=== PATIENT | male | born 2000 | race Hispanic/Latino ===

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

== ENCOUNTER 2021-12-07 07:24 | Emergency (ER) | payer SELFPAY ==
--- OUTSIDE RECORDS SUMMARY | 2021-12-07 07:26 | XMS REPORT | Continuity of Care Document ---
:2000 Author Organization [facility] t Address [address] [place] [address] Care Team Providers Name Role Phone Unavailable Unavailable Unavailable Problems This patient has no known problems. Allergies, Adverse Reactions, Alerts This patient has no known allergies or adverse reactions. Medications This patient has no known medications. Procedures This patient has no known procedures. Results This patient has no known results.
--- NOTE | 2021-12-07 08:49 | ER ---
Nurse's Notes [facility] Name: Noel Morrison Age: 21 yrs Sex: Male : 2000 Arrival Date: 12/07/2021 Time: 07:26 Bed 13 Private MD: Diagnosis: Impacted cerumen, left ear Presentation: 12/07 07:41 Chief complaint: Patient states: Feels like something is in my left ear, no pain, can't jl7 hear very well out of it x 3 days. Coronavirus screen: At this time, the client does not indicate any symptoms associated with coronavirus-19. Ebola Screen: No symptoms or risks identified at this time. Initial Sepsis Screen: Does the patient meet any 2 criteria? No. Patient's initial sepsis screen is negative. Does the patient have a suspected source of infection? No. Patient's initial sepsis screen is negative. Risk Assessment: Do you want to hurt yourself or someone else? Patient reports no desire to harm self or others. Onset of symptoms was December 04, 2021. 07:41 Method Of Arrival: Ambulatory 7 07:41 Acuity: ARTI 4 jl7 Triage Assessment: 07:42 General: Appears in no apparent distress. uncomfortable, Behavior is calm, cooperative, jl7 appropriate for age. Pain: Denies pain. EENT: Reports decreased hearing in left ear. Historical: - Allergies: 07:42 No Known Allergies; jl7 - Home Meds: 07:42 None [Active]; jl7 - PMHx: 07:42 None; jl7 - PSHx: 07:42 None; jl7 - Immunization history:: Adult Immunizations not up to date. - Social history:: Smoking status: Patient/guardian denies using tobacco. Screenin:29 Abuse screen: Denies threats or abuse. Denies injuries from another. Nutritional ic1 screening: No deficits noted. Tuberculosis screening: No symptoms or risk factors identified. Fall Risk None identified. Assessment: 08:29 General: Appears in no apparent distress. comfortable, Behavior is calm, cooperative, ic1 appropriate for age. Pain: Denies pain. Neuro: No deficits noted. Cardiovascular: No deficits noted. Respiratory: No deficits noted. GI: No deficits noted. : No deficits noted. EENT: Reports decreased hearing d/t cerumen build up in L ear. Denies complete hearing loss. . Denies ringing. Derm: No deficits noted. Musculoskeletal: No deficits noted. 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 Pt tolerating. ic1 Vital Signs: 07:41 BP 132 / 71; Pulse 64; Resp 15; Temp 98.2; Pulse Ox 100% ; Weight 92.99 kg; Height 6 jl7 ft. 1 in. (185.42 cm); Pain 0/10; 07:41 Body Mass Index 27.05 (92.99 kg, 185.42 cm) jl7 ED Course: 07:26 Patient arrived in ED. am2 07:26 Rashel Overton MD is Attending Physician. kdr 07:42 Triage completed. jl7 07:42 Arm band placed on right wrist. jl7 07:45 Russ Rohca NP is PHCP. pm1 08:29 Patient has correct armband on for positive identification. Bed in low position. Call ic1 light in reach. Side rails up X2. 08:47 Yareli Mujica MD is Referral Physician. pm1 08:53 No provider procedures requiring assistance completed. Patient did not have IV access cruz during this emergency room visit. Administered Medications: No medications were administered Outcome: 08:48 Discharge ordered by . pm1 08:53 Discharged to home cruz 08:53 Condition: good 08:53 Discharge instructions given to patient. 08:53 Patient left the ED. crzu Signatures: Rashel Overton MD MD kdr Russ Rocha NP FOOD SUPERVISOR pm1 Megha Courtney RN RN jl7 Corinne Davis 2 Cynthia Barbosa RN RN cruz Rafaela Fernando RN RN ic1
--- NOTE | 2021-12-07 08:49 | EDPHYS ---
Physician Documentation [facility] Name: Noel Morrison Age: 21 yrs Sex: Male : 2000 Arrival Date: 12/07/2021 Time: 07:26 Bed 13 Private MD: ED Physician Rashel Overton HPI: 12/07 07:51 This 21 yrs old Male presents to ER via Ambulatory with complaints of Ear pm1 Foreign body sensation. 07:51 The patient presents with a foreign body sensation. The complaints affect the left ear. pm1 Onset: The symptoms/episode began/occurred 3 day(s) ago. Modifying factors: The symptoms are alleviated by nothing, the symptoms are aggravated by Q-tips. Patient attempted to clean out his ears but made it worse. Associated signs and symptoms: Pertinent positives: decreased hearing, Pertinent negatives: cough, fever, tinnitus. Severity of symptoms: in the emergency department the symptoms are worse. The patient has not experienced similar symptoms in the past. The patient has not recently seen a physician. Historical: - Allergies: 07:42 No Known Allergies; jl7 - Home Meds: 07:42 None [Active]; jl7 - PMHx: 07:42 None; jl7 - PSHx: 07:42 None; jl7 - Immunization history:: Adult Immunizations not up to date. - Social history:: Smoking status: Patient/guardian denies using tobacco. ROS: 07:51 Constitutional: Negative for fever, chills, and weight loss. pm1 07:51 Neuro: Negative for headache, weakness, numbness, tingling, and seizure. 07:51 ENT: Positive for hearing loss, Negative for drainage from ear(s), ear pain, sinus congestion, sinus pain, sore throat, dental pain. 07:51 All other systems are negative. Exam: 07:51 Constitutional: This is a well developed, well nourished patient who is awake, alert, pm1 and in no acute distress. Head/Face: Normocephalic, atraumatic. 07:51 Skin: Warm, dry with normal turgor. Normal color with no rashes, no lesions, and no evidence of cellulitis. MS/ Extremity: Pulses equal, no cyanosis. Neurovascular intact. Full, normal range of motion. 07:51 ENT: External ear(s): no acute changes, Ear canal(s): cerumen impaction, that is moderate, occluding the left ear canal, TM's: not visable, because of cerumen, Examination of the other ear shows no obvious abnormality. 07:51 Cardiovascular: Exam negative for acute changes, Rate: normal, Rhythm: regular, Pulses: no pulse deficits are appreciated. 07:51 Respiratory: Exam negative for acute changes, respiratory distress, shortness of breath. 07:51 Neuro: Exam negative for acute changes, Orientation: is normal, Mentation: is normal, Motor: moves all fours, Gait: is steady, at a normal pace, without difficulty. Vital Signs: 07:41 BP 132 / 71; Pulse 64; Resp 15; Temp 98.2; Pulse Ox 100% ; Weight 92.99 kg; Height 6 jl7 ft. 1 in. (185.42 cm); Pain 0/10; 07:41 Body Mass Index 27.05 (92.99 kg, 185.42 cm) jl7 MDM: 07:54 Patient medically screened. pm1 08:47 Data reviewed: vital signs. Data interpreted: Pulse oximetry: on room air is 100 %. pm1 Interpretation: normal. Counseling: I had a detailed discussion with the patient and/or guardian regarding: the historical points, exam findings, and any diagnostic results supporting the discharge/admit diagnosis, the need for outpatient follow up, for definitive care, an ENT specialist, to return to the emergency department if symptoms worsen or persist or if there are any questions or concerns that arise at home. 08:53 ED course: Attempted to irrigate ear for ear wax removal but not successful at removing pm1 all the ear wax. Cerumen impaction persists. I did not want to use a curette due to risk of causing harm with abrasions and TM perforation. Patient given information about ear wax removal kits and ENT information. Administered Medications: No medications were administered Disposition: 12:41 Co-signature as Attending Physician, Rashel Overton MD I agree with the assessment and kdr plan of care. Disposition Summary: 12/07/21 08:48 Discharge Ordered Location: Home pm1 Problem: new pm1 Symptoms: have improved pm1 Condition: Stable pm1 Diagnosis - Impacted cerumen, left ear pm1 Followup: pm1 - With: Emergency Department - When: As needed - Reason: Worsening of condition Followup: pm1 - With: Yareli Mujica MD - When: 2 - 3 days - Reason: Recheck today's complaints, Continuance of care, Re-evaluation by your physician Discharge Instructions: - Discharge Summary Sheet pm1 - Earwax Buildup, Adult pm1 Forms: - Medication Reconciliation Form pm1 - Thank You Letter pm1 - Antibiotic Education pm1 - Prescription Opioid Use pm1 - Work release form eb Signatures: Rashel Overton MD MD kdr Russ Rocha NP [employer] pm1 Megha Courtney RN RN jl7
[2021-12-07 08:58] VITALS: BP 132/71; TEMP 98.2; O2SAT 100
== END 2021-12-07 08:53 | disposition home or self-care (01) ==
LOC: ER 07:24
DX: H61.22 Impacted cerumen, left ear (principal)
CPT/HCPCS: 99281

== ENCOUNTER 2022-06-23 05:05 | Emergency (ER) | payer SELFPAY ==
--- OUTSIDE RECORDS SUMMARY | 2022-06-23 05:08 | XMS REPORT | Continuity of Care Document ---
:2000 Author Organization [facility] t Address [address] [place] [address] Care Team Providers Name Role Phone Unavailable Unavailable Unavailable Problems This patient has no known problems. Allergies, Adverse Reactions, Alerts This patient has no known allergies or adverse reactions. Medications This patient has no known medications. Procedures This patient has no known procedures. Results This patient has no known results.
[2022-06-23] MEDS ORDERED: TETANUS & DIPHTHERIA TOX,ADULT 0.5 ML VIAL ONE (05:53)
[2022-06-23] MEDS ORDERED: CEPHALEXIN 250 MG CAP ONE (05:53)
[2022-06-23] MEDS ORDERED: IBUPROFEN 400 MG TAB ONE (05:53)
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
[2022-06-23 09:45] VITALS: TEMP 99.2
--- NOTE | 2022-06-23 09:47 | RAD REPORT ---
EXAM DESCRIPTION: RAD - Hand Right 3 View - 06/23/2022 6:16 am CLINICAL HISTORY: PAINnot otherwise specified COMPARISON: No comparisons FINDINGS: No fracture is identified. There is no dislocation or periosteal reaction noted. Soft tis mi swelling is present over the dorsum of the hand. No air or foreign body seen in the soft tissues. IMPRESSION: Right hand soft tissue swelling with no air or foreign body seen in the soft tissues. No acute bone or joint finding.
[2022-06-23 09:53] VITALS: BP 127/65; O2SAT 100
== END 2022-06-23 09:34 | disposition home or self-care (01) ==
LOC: ER 05:05
DX: S60.511A Abrasion of right hand, initial encounter (principal); Z23 Encounter for immunization; F17.210 Nicotine dependence, cigarettes, uncomplicated
CPT/HCPCS: 90471; 90714; 99283

== ENCOUNTER 2023-08-24 04:33 | Emergency (ER) | payer SELFPAY ==
[2023-08-24] MEDS ORDERED: TETRACAINE HCL 0.5% 4ML OPTH ONE (05:09)
[2023-08-24] MEDS ORDERED: FLUORESCEIN SODIUM 1 MG/WRAP ONE (05:12)
--- NOTE | 2023-08-24 05:19 | ER ---
Nurse's Notes [facility] Name: Noel Morrison Age: 22 yrs Sex: Male : 2000 Arrival Date: 08/24/2023 Time: 04:33 Bed 19 Private MD: Diagnosis: Unspecified acute conjunctivitis, right eye Presentation: 08/24 05:00 Chief complaint: Patient states: right eye redness, eye watering, and light sensitivity km8 for about 2 hours; pt does normally wear contacts, did not sleep in them last night. Coronavirus screen: Client denies travel out of the [place] in the last 14 days. At this time, the client does not indicate any symptoms associated with coronavirus-19. Ebola Screen: No symptoms or risks identified at this time. Initial Sepsis Screen: Does the patient meet any 2 criteria? No. Patient's initial sepsis screen is negative. Does the patient have a suspected source of infection? No. Patient's initial sepsis screen is negative. Risk Assessment: Do you want to hurt yourself or someone else? Patient reports no desire to harm self or others. Onset of symptoms was August 24, 2023 at 03:00. 05:00 Method Of Arrival: Ambulatory km8 05:00 Acuity: ARTI 4 km8 Triage Assessment: 05:03 General: Appears in no apparent distress. comfortable, Behavior is calm, cooperative, km8 appropriate for age. Pain: Complains of pain in right eye Pain currently is 8 out of 10 on a pain scale. EENT: Eyes are tearing on right eye Reports pain Pain is 8 out of 10 on a pain scale. Neuro: No deficits noted. Bishop Agitation-Sedation Scale (RASS): 0 - Alert and Calm Level of Consciousness is awake, alert, obeys commands, Oriented to person, place, time, situation. Cardiovascular: No deficits noted. Denies chest pain, shortness of breath, Capillary refill < 3 seconds Patient's skin is warm and dry. Respiratory: No deficits noted. Airway is patent Respiratory effort is even, unlabored, Respiratory pattern is regular, symmetrical. GI: No deficits noted. No signs and/or symptoms were reported involving the gastrointestinal system. : No deficits noted. No signs and/or symptoms were reported regarding the genitourinary system. Derm: No deficits noted. No signs and/or symptoms reported regarding the dermatologic system. Musculoskeletal: No deficits noted. No signs and/or symptoms reported regarding the musculoskeletal system. Historical: - Allergies: 05:03 No Known Allergies; km8 - Home Meds: 05:03 None [Active]; km8 - PMHx: 05:03 None; km8 - PSHx: 05:03 None; km8 - Immunization history:: Adult Immunizations up to date, Client reports having NOT received the Covid vaccine. Flu vaccine is not up to date. - Social history:: Smoking status: Patient reports the use of cigarette tobacco products, denies chronic smoking, but will smoke occasionally, Patient uses alcohol, occasionally. Patient/guardian denies using street drugs. Screenin:05 [facility] ED Fall Risk Assessment (Adult) History of falling in the last 3 months, [facility] including since admission No falls in past 3 months (0 pts) Confusion or Disorientation No (0 pts) Intoxicated or Sedated No (0 pts) Impaired Gait No (0 pts) Mobility Assist Device Used No (0 pt) Altered Elimination No (0 pt) Score/Fall Risk Level 0 - 2 = Low Risk Oriented to surroundings, Maintained a safe environment, Educated pt \T\ family on fall prevention, incl call for assistance when getting out of bed, Assessed \T\ reinforced patient's understanding of fall precautions. Abuse screen: Denies threats or abuse. Denies injuries from another. Nutritional screening: No deficits noted. Tuberculosis screening: No symptoms or risk factors identified. Assessment: 05:05 General: see triage note/assessment. [facility] Vital Signs: 05:00 BP 156 / 84; Pulse 63; Resp 16 S; Temp 97.8(O); Pulse Ox 100% on R/A; Weight 104.33 kg 8 (R); Height 6 ft. 2 in. (R); Pain 8/10; 05:18 BP 142 / 71; Pulse 63; Resp 16 S; Pulse Ox 100% on R/A; [facility] 05:00 Body Mass Index 29.53 (104.33 kg, 187.96 cm) [facility] 05:00 Pain Scale: Adult [facility] Visual Acuity: 05:16 Left Eye Visual acuity 20/200, ; Right Eye Visual acuity 20/200, ; Both Eyes Visual [facility] acuity 20/200; Without Lenses; pt normally wears glasses or contacts; currently does not have contacts in and did not bring glasses; pt states he can see the same out of both eyes ED Course: 04:34 Patient arrived in ED. jj6 04:42 Da Sanchez DO is Attending Physician. ms3 04:50 Malinda Mathews, RN is Primary Nurse. km8 05:03 Triage completed. km8 05:03 Arm band placed on right wrist. km8 05:05 Patient has correct armband on for positive identification. Bed in low position. Call km8 light in reach. Client placed on continuous cardiac and pulse oximetry monitoring. NIBP monitoring applied. Door closed. Noise minimized. 05:05 Patient maintains SpO2 saturation greater than 95% on room air. km8 05:18 Vinod Baca MD is Referral Physician. ms3 05:20 No provider procedures requiring assistance completed. Patient did not have IV access km8 during this emergency room visit. Administered Medications: 05:05 CANCELLED (Not availablee): erythromycinointment 1 application Ophthalmic once ms3 05:06 Drug: Tetracaine Ophthalmic Drops 0.5 % 1 drops Ophthalmic once {Note: By Dr. Sanchez.} km8 Route: Ophthalmic; Site: right eye; 05:19 Follow up: Response: No adverse reaction km8 05:18 Drug: Tobramycin Ophthalmic Drops (0.3 %) 2 drops Ophthalmic once Route: Ophthalmic; km8 Site: right eye; Medication: 05:20 VIS not applicable for this client. km8 Outcome: 05:18 Discharge ordered by . ms3 05:29 Discharged to home ambulatory, with significant other, km8 05:29 Condition: good 05:29 Discharge instructions given to patient, significant other, Instructed on discharge instructions, follow up and referral plans. medication usage, Demonstrated understanding of instructions, follow-up care, medications, 05:29 Patient left the ED. km8 Signatures: Da Sanchez DO DO ms3 Laura Villanuevafer jj6 Malinda Mathews, RN RN km8
--- NOTE | 2023-08-24 05:19 | EDPHYS ---
Physician Documentation [facility] Name: Noel Morrison Age: 22 yrs Sex: Male : 2000 Arrival Date: 08/24/2023 Time: 04:33 Bed 19 Private MD: ED Physician Da Sanchez HPI: 08/24 05:07 This 22 yrs old Male presents to ER via Ambulatory with complaints of Redness ms3 of Eye. 05:07 22-year-old male with no past medical history presents for right eye redness. Patient ms3 states he took his contacts out at 1 AM and began having burning of his right eye. Patient states he rinsed his eye with water. Patient states his pain is worse with light. Patient denies any alleviating factors.. Historical: - Allergies: 05:03 No Known Allergies; km8 - Home Meds: 05:03 None [Active]; km8 - PMHx: 05:03 None; km8 - PSHx: 05:03 None; km8 - Immunization history:: Adult Immunizations up to date, Client reports having NOT received the Covid vaccine. Flu vaccine is not up to date. - Social history:: Smoking status: Patient reports the use of cigarette tobacco products, denies chronic smoking, but will smoke occasionally, Patient uses alcohol, occasionally. Patient/guardian denies using street drugs. ROS: 05:07 Constitutional: Negative for fever, and chills. ms3 05:07 Cardiovascular: Negative for chest pain, and palpitations. Respiratory: Negative for shortness of breath, cough, wheezing, and pleuritic chest pain, Abdomen/GI: Negative for abdominal pain, nausea, vomiting, diarrhea, and constipation, MS/Extremity: Negative for injury and deformity, 05:07 Eyes: Positive for pain, redness, 05:07 All other systems are negative, Exam: 05:07 Constitutional: This is a well developed, well nourished patient who is awake, alert, ms3 and in no acute distress. Head/Face: Normocephalic, atraumatic. Neck: Trachea midline, no cervical lymphadenopathy. Supple, full range of motion without nuchal rigidity, or vertebral point tenderness. No Meningismus. Chest/axilla: Normal chest wall appearance and motion. Nontender with no deformity. Cardiovascular: Regular rate and rhythm with a normal S1 and S2. No gallops, murmurs, or rubs. Normal PMI, no JVD. No pulse deficits. Respiratory: Lungs have equal breath sounds bilaterally, clear to auscultation and percussion. No rales, rhonchi or wheezes noted. No increased work of breathing, no retractions or nasal flaring. Abdomen/GI: Soft, non-tender, with normal bowel sounds. No distension or tympany. No guarding or rebound. No evidence of tenderness throughout. Skin: Warm, dry with normal turgor. Normal color with no rashes, no lesions, and no evidence of cellulitis. 05:07 Eyes: Periorbital structures: appear normal, Pupils: equal, round, and reactive to light and accomodation, Extraocular movements: no acute changes, Conjunctiva: normal, Corneas: are normal, no evidence of abrasion, no foreign body, a fluorescein strip employed to appreciate the findings, Lids and lashes: appear normal, Vital Signs: 05:00 BP 156 / 84; Pulse 63; Resp 16 S; Temp 97.8(O); Pulse Ox 100% on R/A; Weight 104.33 kg km8 (R); Height 6 ft. 2 in. (R); Pain 8/10; 05:18 BP 142 / 71; Pulse 63; Resp 16 S; Pulse Ox 100% on R/A; km8 05:00 Body Mass Index 29.53 (104.33 kg, 187.96 cm) [facility] 05:00 Pain Scale: Adult km8 Visual Acuity: 05:16 Left Eye Visual acuity 20/200, ; Right Eye Visual acuity 20/200, ; Both Eyes Visual km8 acuity 20/200; Without Lenses; pt normally wears glasses or contacts; currently does not have contacts in and did not bring glasses; pt states he can see the same out of both eyes MDM: 04:51 Patient medically screened. ms3 05:07 Differential diagnosis: Corneal abrasion of right eye. Chemical conjunctivitis in right ms3 eye. Infectious conjunctivitis in right eye. 05:25 Data reviewed: vital signs, nurses notes, and as a result, I will discharge patient. I ms3 considered the following discharge prescriptions or medication management in the emergency department Medications were administered in the Emergency Department. See MAR. Care significantly affected by the following Social Determinants of Health: Poor access to healthcare and/or lack of insurance. Counseling: I had a detailed discussion with the patient and/or guardian regarding the historical points, exam findings, and any diagnostic results supporting the discharge/admit diagnosis, the need for outpatient follow up, to return to the emergency department if symptoms worsen or persist or if there are any questions or concerns that arise at home. Special discussion: I discussed with the patient/guardian in detail that at this point there is no indication for admission to the hospital. It is understood, however, that if the symptoms persist or worsen the patient needs to return immediately for re-evaluation. ED course: Patient's visual acuity noted without corrective lenses. Patient to follow-up with his eye physician in 1 to 2 days. Patient understands and agrees with plan. All questions were answered. Return precautions discussed include worsening symptoms, or any other concerns. 08/24 04:47 Order name: Eye Tray; Complete Time: 04:59 ms3 08/24 04:47 Order name: Fluoresene Opth strip; Complete Time: 04:59 ms3 08/24 04:47 Order name: Visual Acuity; Complete Time: 05:18 ms3 Administered Medications: 05:05 CANCELLED (Not availablee): erythromycinointment 1 application Ophthalmic once ms3 05:06 Drug: Tetracaine Ophthalmic Drops 0.5 % 1 drops Ophthalmic once {Note: By Dr. Sanchez.} 8 Route: Ophthalmic; Site: right eye; 05:19 Follow up: Response: No adverse reaction [facility] 05:18 Drug: Tobramycin Ophthalmic Drops (0.3 %) 2 drops Ophthalmic once Route: Ophthalmic; [facility] Site: right eye; Disposition Summary: 08/24/23 05:18 Discharge Ordered Notes: Location: Home ms3 Condition: Stable ms3 Diagnosis - Unspecified acute conjunctivitis, right eye ms3 Followup: ms3 - With: Vinod Baca MD - When: 1 - 2 days - Reason: Recheck today's complaints Discharge Instructions: - Discharge Summary Sheet ms3 - How to Use Eye Drops and Eye Ointments ms3 - Bacterial Conjunctivitis, Adult, Xavv-ts-Neap ms3 Forms: - Medication Reconciliation Form ms3 - Thank You Letter ms3 - Antibiotic Education ms3 - Prescription Opioid Use ms3 - Patient Portal Instructions ms3 - Leadership Thank You Letter ms3 Prescriptions: - Vigamox 0.5 % Ophthalmic Drops - instill 1 drop OPHTHALMIC route every 8 hours for 7 days; 5 milliliter; ms3 Refills: 0, Product Selection Permitted Signatures: Da Sanchez DO DO ms3 Malinda Mathews RN RN km8 Corrections: (The following items were deleted from the chart) 05:05 04:47 ERYTHromycin Ophthalmic Ointment 1 application Ophthalmic once ordered. ms3 ms3
[2023-08-24] MEDS ORDERED: TOBRAMYCIN SULF 0.3% OPTH OINT ONE (05:26)
== END 2023-08-24 05:29 | disposition home or self-care (01) ==
LOC: ER 04:33
DX: H10.31 Unspecified acute conjunctivitis, right eye (principal)
CPT/HCPCS: 99284

== ENCOUNTER 2024-09-24 00:20 | Emergency (ER) | payer SELFPAY ==
--- OUTSIDE RECORDS SUMMARY | 2024-09-24 00:23 | XMS REPORT | Continuity of Care Document ---
Author Name Unknown Address [address] [place] [address] [employer] Address [address] [place] [address] 1 [address] [place] [address] Care Team Providers Care Sexton Helper Name Role Phone Unavailable Unavailable Unavailable Encounters Start Date/Time End Date/Time Encounter Type Admission Type Attending Clinicians Care Facility Care Department Encounter ID Source 2024-04-22 08:05:51 2024-04-22 08:05:51 Outpatient [facility] [id number] Jigar Barrera
[2024-09-24 01:22] LABS: Absolute Eosinophils 0.2 K/uL (0-0.5); Absolute Lymphocytes (CBC) 2.3 K/uL (0.7-4.9); Absolute Monocytes 0.6 K/uL (0.1-1.3); Basophils % 0.4 % (0-1.3); Eosinophils % 2.5 % (0-4.4); Hematocrit 45.1 % (39.6-49.0); Hemoglobin 15.6 g/dL (13.6-17.9); MCH 31.1 pg (27.0-35.0); MCHC 34.7 g/dL (32.0-36.0); MCV 89.6 fL (80-100); MPV 9.6 fL (7.6-11.3); Monocytes % 7.9 % (3.3-12.3); Neutrophils % 61.2 % (41.7-73.7); Platelets 246 thou/uL (152-406); RBC Red Blood Cell Count 5.03 M/uL (4.33-5.43); Red Cell Distribution Width 13.3 % (12.1-15.2)
[2024-09-24 01:24] LABS: Specific Gravity 1.022 (1.005-1.030); Sqamous Epithelial <5 /HPF (None Seen); Urine Bacteria None Seen /HPF (<20); Urine Bilirubin NEGATIVE (Negative); Urine Blood Negative (Negative); Urine Clarity Clear (Clear); Urine Color Light-Yellow (Yellow); Urine Culture Reflex Order NOT NEEDED; Urine Glucose NEGATIVE (Negative); Urine Ketones NEGATIVE (Negative); Urine Microscopic Reflex YN ORDER UMIC; Urine Mucus Slight /HPF (None Seen); Urine Nitrite NEGATIVE (Negative); Urine Protein NEGATIVE (Negative); Urine RBC None Seen /HPF (None Seen); Urine Urobilinogen Normal (Normal); Urine WBC <5 /HPF (<5); Urine pH 5.5 (5.0-7.0)
[2024-09-24 01:32] LABS: Albumin 3.9 g/dL (3.4-5.0); Albumin/Globulin Ratio 1.1 (1.1-1.8); Anion Gap 10.7 mEq/L (5.0-15.0); Bilirubin Total 0.5 mg/dL (0.2-1.0); Globulin 3.6 g/dL (2.3-3.5); Potassium 3.7 mEq/L (3.5-5.1); Protein, Total 7.5 g/dL (6.4-8.2)
--- NOTE | 2024-09-24 01:57 | ER ---
Nurse's Notes [facility] Name: Noel Morrison Age: 24 yrs Sex: Male : 2000 Arrival Date: 09/24/2024 Time: 00:20 Bed 8 Private MD: Diagnosis: Flank pain Presentation: 09/24 00:20 Chief complaint: Patient states: I have been having this left sided flank pain for like bm8 4 days. 00:20 Method Of Arrival: Ambulatory bm8 00:20 Coronavirus screen: At this time, the client does not indicate any symptoms associated bm8 with coronavirus-19. Ebola Screen: Patient negative for fever greater than or equal to 101.5 degrees Fahrenheit, and additional compatible Ebola Virus Disease symptoms Patient denies exposure to infectious person. Patient denies travel to an Ebola-affected area in the 21 days before illness onset. No symptoms or risks identified at this time. Initial Sepsis Screen: Does the patient meet any 2 criteria? No. Patient's initial sepsis screen is negative. Does the patient have a suspected source of infection? No. Patient's initial sepsis screen is negative. Risk Assessment: Do you want to hurt yourself or someone else? Patient reports no desire to harm self or others. Onset of symptoms was September 24, 2024 at 00:20. 00:20 Acuity: ARTI 3 bm8 00:20 Onset of symptoms was September 20, 2024. bm8 Triage Assessment: 00:20 General: Appears in no apparent distress. comfortable. General: Behavior is calm, bm8 cooperative, appropriate for age. Pain: Complains of pain in posterior aspect of left lateral abdomen and left mid back and left low back Pain currently is 6 out of 10 on a pain scale. EENT: No deficits noted. No signs and/or symptoms were reported regarding the EENT system. Neuro: No deficits noted. Level of Consciousness is awake, alert, obeys commands, Oriented to person, place, time, situation, Appropriate for age. Cardiovascular: Denies chest pain, Capillary refill < 3 seconds in bilateral fingers Patient's skin is warm and dry. Respiratory: Airway is patent Respiratory effort is even, unlabored, Respiratory pattern is regular, symmetrical. GI: No deficits noted. No signs and/or symptoms were reported involving the gastrointestinal system. : No deficits noted. No signs and/or symptoms were reported regarding the genitourinary system. Derm: No deficits noted. No signs and/or symptoms reported regarding the dermatologic system. Musculoskeletal: Capillary refill < 3 seconds, in bilateral fingers. Reports left sided flank pain. Historical: - Allergies: :08 No Known Allergies; bm8 - Home Meds: 01:08 None [Active]; bm8 - PMHx: 01:08 None; bm8 - PSHx: 01:08 None; bm8 - Immunization history:: Adult Immunizations up to date. - Infectious Disease History:: Denies. - Social history:: Smoking status: Patient reports the use of cigarette tobacco products, denies chronic smoking, but will smoke occasionally. Screenin:08 [facility] ED Fall Risk Assessment (Adult) History of falling in the last 3 months, bm8 including since admission No falls in past 3 months (0 pts) Confusion or Disorientation No (0 pts) Intoxicated or Sedated No (0 pts) Impaired Gait No (0 pts) Mobility Assist Device Used No (0 pt) Altered Elimination No (0 pt) Score/Fall Risk Level 0 - 2 = Low Risk Oriented to surroundings, Maintained a safe environment, Educated pt \T\ family on fall prevention, incl call for assistance when getting out of bed, Assessed \T\ reinforced patient's understanding of fall precautions, Hourly rounding (assess needs \T\ fall precautionary measures) done, Used ambulatory aids as needed (educated on \T\ assisted with), Used gait belt as appropriate. Abuse screen: Denies threats or abuse. Nutritional screening: No deficits noted. Tuberculosis screening: No symptoms or risk factors identified. Assessment: 01:06 Reassessment: Patient appears in no apparent distress at this time. Patient and/or bm8 family updated on plan of care and expected duration. Pain level reassessed. Patient is alert, oriented x 3, equal unlabored respirations, skin warm/dry/pink. General: Appears in no apparent distress. comfortable, Behavior is calm, cooperative, appropriate for age. Pain: Complains of pain in left low back, left mid back and posterior aspect of left lateral abdomen Pain currently is 6 out of 10 on a pain scale. Neuro: No deficits noted. Level of Consciousness is awake, alert, obeys commands, Oriented to person, place, time, situation, Appropriate for age. Cardiovascular: Denies chest pain, Capillary refill < 3 seconds in bilateral fingers. Respiratory: Airway is patent Respiratory effort is even, unlabored, Respiratory pattern is regular, symmetrical, Breath sounds are clear bilaterally. GI: Reports lower abdominal pain, nausea, Pain is 6 out of 10 on a pain scale. : No signs and/or symptoms were reported regarding the genitourinary system. EENT: No signs and/or symptoms were reported regarding the EENT system. Derm: No signs and/or symptoms reported regarding the dermatologic system. Musculoskeletal: No signs and/or symptoms reported regarding the musculoskeletal system. 02:00 Reassessment: Patient appears in no apparent distress at this time. No changes from bm8 previously documented assessment. Patient and/or family updated on plan of care and expected duration. Pain level reassessed. Patient is alert, oriented x 3, equal unlabored respirations, skin warm/dry/pink. Vital Signs: 01:08 BP 134 / 72; Pulse 80; Resp 17; Temp 98.2; Pulse Ox 100% ; Pain 6/10; bm8 02:00 BP 132 / 71; Pulse 63; Resp 17; Temp 98.2; Pulse Ox 100% ; Pain 5/10; bm8 01:08 Pain Scale: Adult bm8 02:00 Pain Scale: Adult bm8 Parlier Coma Score: 01:08 Eye Response: spontaneous(4). Motor Response: obeys commands(6). Verbal Response: bm8 oriented(5). Total: 15. 02:00 Eye Response: spontaneous(4). Motor Response: obeys commands(6). Verbal Response: bm8 oriented(5). Total: 15. ED Course: 00:20 Arm band placed on right wrist. bm8 00:22 Patient arrived in ED. mr 00:27 Jayy Rodriguez MD is Attending Physician. sp3 00:58 CT Abd/Pelvis - Without Contrast In Process Unspecified. EDMS 01:06 Pawel Santos, RN is Primary Nurse. bm8 01:08 Patient has correct armband on for positive identification. Bed in low position. Call bm8 light in reach. Side rails up X 1. Client placed on continuous cardiac and pulse oximetry monitoring. NIBP monitoring applied. Pulse ox on. NIBP on. Door closed. Noise minimized. Warm blanket given. Pillow given. Verbal reassurance given. Head of bed elevated. 01:08 No provider procedures requiring assistance completed. Initial lab(s) drawn, by me, natalia sent to lab. Urine collected: clean catch specimen, clear. Inserted saline lock: 20 gauge in right antecubital area, using aseptic technique. Blood collected. Flushed with 10 mL NS. Patient maintains SpO2 saturation greater than 95% on room air. 02:00 Provided Education on: post er care. bm8 02:00 IV discontinued, intact, bleeding controlled, No redness/swelling at site. Pressure bm8 dressing applied. 02:15 Triage completed. bm8 Administered Medications: No medications were administered Medication: 01:08 VIS not applicable for this client. bm8 Outcome: 01:57 Discharge ordered by . sp3 02:00 Discharged to home ambulatory, bm8 02:00 Condition: stable 02:00 Discharge instructions given to patient, Instructed on discharge instructions, follow up and referral plans. Demonstrated understanding of instructions, follow-up care, medications, Prescriptions given X 1, 02:09 Patient left the ED. bm8 Signatures: Dispatcher [employer] EDIA Lizzy De Guzman, Reg Reg Jayy Marte MD MD sp3 Pawel Santos, RN RN bm8 Corrections: (The following items were deleted from the chart) 01:09 01:08 PSHx: None; bm8 bm8
--- NOTE | 2024-09-24 01:57 | EDPHYS ---
Physician Documentation [facility] Name: Noel Morrison Age: 24 yrs Sex: Male : 2000 Arrival Date: 09/24/2024 Time: 00:20 Bed 8 Private MD: ED Physician Jayy Rodriguez HPI: 09/24 00:36 This 24 yrs old Male presents to ER via Unassigned with complaints of Back sp3 Pain. 00:36 24-year-old male with no past medical history presents with left flank pain for 2 days. sp3 Patient denies prior history of kidney stones, UTI or any other history. He currently denies urinary frequency, visualized hematuria, trauma, muscle pull or any other related history. Review of systems she denies headache, neck pain, chest pain, shortness of breath, vomiting, diarrhea, rash, bleeding, travel history, known sick contacts, or any other signs or symptoms on ROS at this time. He denies any urethral discharge or STI symptoms.. Historical: - Allergies: 01:08 No Known Allergies; bm8 - Home Meds: 01:08 None [Active]; bm8 - PMHx: 01:08 None; bm8 - PSHx: 01:08 None; bm8 - Immunization history:: Adult Immunizations up to date. - Infectious Disease History:: Denies. - Social history:: Smoking status: Patient reports the use of cigarette tobacco products, denies chronic smoking, but will smoke occasionally. ROS: 00:37 Constitutional: Negative for fever, chills, and weight loss, Eyes: Negative for injury, sp3 pain, redness, and discharge, ENT: Negative for injury, pain, and discharge, Neck: Negative for injury, pain, and swelling, Cardiovascular: Negative for chest pain, palpitations, and edema, Respiratory: Negative for shortness of breath, cough, wheezing, and pleuritic chest pain, Abdomen/GI: Negative for abdominal pain, nausea, vomiting, diarrhea, and constipation, Back: Negative for injury and pain, MS/Extremity: Negative for injury and deformity, Skin: Negative for injury, rash, and discoloration, Neuro: Negative for headache, weakness, numbness, tingling, and seizure, Psych: Negative for depression, anxiety, suicide ideation, homicidal ideation, and hallucinations, Allergy/Immunology: Negative for hives, rash, and allergies, Endocrine: Negative for neck swelling, polydipsia, polyuria, polyphagia, and marked weight changes, Hematologic/Lymphatic: Negative for swollen nodes, abnormal bleeding, and unusual bruising, 00:37 All other systems are negative, Exam: 00:37 Constitutional: This is a well developed, well nourished patient who is awake, alert, sp3 and in no acute distress. Head/Face: Normocephalic, atraumatic. Eyes: Pupils equal round and reactive to light, extra-ocular motions intact. Lids and lashes normal. Conjunctiva and sclera are non-icteric and not injected. Cornea within normal limits. Periorbital areas with no swelling, redness, or edema. Neck: Trachea midline, no thyromegaly or masses palpated, and no cervical lymphadenopathy. Supple, full range of motion without nuchal rigidity, or vertebral point tenderness. No Meningismus. Chest/axilla: Normal chest wall appearance and motion. Nontender with no deformity. No lesions are appreciated. Cardiovascular: Regular rate and rhythm with a normal S1 and S2. No gallops, murmurs, or rubs. Normal PMI, no JVD. No pulse deficits. Respiratory: Lungs have equal breath sounds bilaterally, clear to auscultation and percussion. No rales, rhonchi or wheezes noted. No increased work of breathing, no retractions or nasal flaring. Abdomen/GI: Soft, non-tender, with normal bowel sounds. No distension or tympany. No guarding or rebound. No evidence of tenderness throughout. Skin: Warm, dry with normal turgor. Normal color with no rashes, no lesions, and no evidence of cellulitis. MS/ Extremity: Pulses equal, no cyanosis. Neurovascular intact. Full, normal range of motion. Neuro: Awake and alert, GCS 15, oriented to person, place, time, and situation. Cranial nerves II-XII grossly intact. Motor strength 5/5 in all extremities. Sensory grossly intact. Cerebellar exam normal. Normal gait. Psych: Awake, alert, with orientation to person, place and time. Behavior, mood, and affect are within normal limits. 00:37 Back: No CVA tenderness. Mild pain to palpation along musculature of the left flank., Vital Signs: 01:08 BP 134 / 72; Pulse 80; Resp 17; Temp 98.2; Pulse Ox 100% ; Pain 6/10; bm8 02:00 BP 132 / 71; Pulse 63; Resp 17; Temp 98.2; Pulse Ox 100% ; Pain 5/10; bm8 01:08 Pain Scale: Adult bm8 02:00 Pain Scale: Adult bm8 Yaima Coma Score: 01:08 Eye Response: spontaneous(4). Motor Response: obeys commands(6). Verbal Response: bm8 oriented(5). Total: 15. 02:00 Eye Response: spontaneous(4). Motor Response: obeys commands(6). Verbal Response: bm8 oriented(5). Total: 15. MDM: 00:27 Medical Screening Exam initiated sp3 00:38 Data reviewed: vital signs, nurses notes, lab test result(s), radiologic studies. ED sp3 course: 24-year-old male with left flank pain. Differential diagnosis includes muscular pain/strain, kidney stone, UTI/pyelonephritis spectrum, among others. I am not highly spacious for intra-abdominal pathology including GI, vascular or other pathology. Workup will include CT scan of the abdomen pelvis, general labs, UA and general supportive care. Disposition pending workup and patient course.. 01:56 ED course: Full workup negative including CT. We will safely discharge patient home at sp3 this time on diclofenac for pain control.. 09/24 00:36 Order name: CBC with Diff; Complete Time: sp3 09/24 00:36 Order name: CMP; Complete Time: sp3 09/24 00:36 Order name: Lipase; Complete Time: sp3 09/24 00:36 Order name: Urinalysis w/ reflexes; Complete Time: sp3 09/24 00:36 Order name: CT Abd/Pelvis - Without Contrast sp3 09/24 00:36 Order name: IV Saline Lock; Complete Time: sp3 09/24 00:36 Order name: Labs collected and sent; Complete Time: : sp3 Administered Medications: No medications were administered Disposition Summary: 09/24/24 01:57 Discharge Ordered Notes: Location: Home sp3 Condition: Stable sp3 Diagnosis - Flank pain sp3 Followup: sp3 - With: Private Physician - When: Upon discharge from the Emergency Department - Reason: Continuance of care Discharge Instructions: - Discharge Summary Sheet sp3 - Flank Pain, Adult sp3 Forms: - Medication Reconciliation Form sp3 - Antibiotic Education sp3 - Prescription Opioid Use sp3 - Patient Portal Instructions sp3 - Leadership Thank You Letter sp3 - Work release form bm8 Prescriptions: - Diclofenac Sodium 75 mg Oral Tablet Sustained Release - take 1 tablet ORAL route 2 times per day; 30 tablet; Refills: 0, Product sp3 Selection Permitted Signatures: Dispatcher [employer] EDJayy Lopez MD MD sp3 Pawel Santos RN RN bm8 Corrections: (The following items were deleted from the chart) 01:09 01:08 PSHx: None; bm8 bm8
--- NOTE | 2024-09-24 02:46 | RAD REPORT ---
CLINICAL HISTORY: Left flank pain. COMPARISON: None. TECHNIQUE: CT ABDOMEN PELVIS WITHOUT IV CONTRAST on 09/24/2024 12:36 AM ELECTRICAL TEST TECHNICIAN This exam was performed according to our departmental dose-optimization program, which includes autom ated exposure control, adjustment of the mA and/or kV according to patient size and/or use of iterative reconstruction technique. FINDINGS: Lower lungs are clear. Abdomen: The liver is normal in appearance. There is no biliary dilatation. Gallbladder is decompress ed. The pancreas and spleen are normal in appearance. The adrenal glands and kidneys are unremarkable. Abdominal aorta is normal in course and caliber without aneurysm. There is no free air. There is no r etroperitoneal adenopathy. Pelvis: There is no bowel obstruction. Urinary bladder is unremarkable. There is no free fluid. Appen isha is normal. Skeleton: There are no acute osseous findings. No suspicious bony lesions. IMPRESSION: No acute process. Electronically signed by: Stefan Eric MD 09/24/2024 01:46 AM ELECTRICAL TEST TECHNICIAN RP Due to temporary technical issues with the PACS/[employer] reporting system, reports are being milo d by the in-house radiologist without review as a courtesy to ensure prompt reporting the interpreting radiologist is fully responsible for the content of the report. Transcribed Date/Time: 09/24/2024 2:45 AM
[2024-09-24 05:35] VITALS: BP 134/72; TEMP 98.2; O2SAT 100
== END 2024-09-24 02:09 | disposition home or self-care (01) ==
LOC: ER 00:20
DX: R10.9 Unspecified abdominal pain (principal)
CPT/HCPCS: 36415; 74176; 80053; 81001; 83690; 85025; 99284